=== PATIENT | female | born 1965 | race Caucasian/White ===

== ENCOUNTER → 2017-04-20 | Outpatient (CLI) | payer BC | LOC: KOH-I 15:01 | DX: R05 Cough (principal) | CPT/HCPCS: 71020 ==

== ENCOUNTER → 2021-08-28 | Outpatient (CLI) | payer OTHER ==
[~2021-08-28] MED LIST: ADVIL200 M1 PO; ALBUTEROL1.25 MG/3 INH; ELIQUIS2.5 MG PO; NORCO 7.5-3251 EACH PO; PANTOPRAZOLE SO40 MG PO; PREMARIN0.9 MG PO; PROZAC20 MG PO; PROZAC40 MG PO; SYMBICORT 80-10.2 GM INH; VENTOLIN HFA 66.7 GM INH
== END ==
LOC: KOH-I 08-27 11:00
DX: F17.210 Nicotine dependence, cigarettes, uncomplicated (principal); R91.8 Other nonspecific abnormal finding of lung field
CPT/HCPCS: 71271

== ENCOUNTER → 2021-12-03 | Outpatient (CLI) | payer OTHER | LOC: KOH-I 12:48 | DX: J20.9 Acute bronchitis, unspecified (principal) | CPT/HCPCS: 71046 ==

== ENCOUNTER → 2022-01-10 | Outpatient (CLI) | payer OTHER | LOC: SLEEP 13:34 | DX: R91.8 Other nonspecific abnormal finding of lung field (principal) | CPT/HCPCS: 95810 ==

== ENCOUNTER → 2022-03-16 | Outpatient (CLI) | payer OTHER | LOC: HEART 5 15:09 | DX: R06.02 Shortness of breath (principal); R91.8 Other nonspecific abnormal finding of lung field | CPT/HCPCS: 94060; 94729 ==

== ENCOUNTER → 2022-08-12 | Outpatient (CLI) | payer OTHER | LOC: KOH-I 08:35 | DX: J41.1 Mucopurulent chronic bronchitis (principal) | CPT/HCPCS: 71046 ==